=== PATIENT | female | born 1960 | race Caucasian/White ===

== ENCOUNTER 2018-12-04 05:01 | Inpatient (IN) ==
--- NOTE | 2018-10-31 10:49 | Anesthesiology Consultation ---
Date of Service October 31, 2018 Assessment & Plan (1) Encounter for pre-operative examination: - No previous anesthesia records re:intubations. Chart Review Chart Review: Acceptable Risk for Surgery and Patient seen in Pre Admission T esting Consults Requested medical (Dr. Anaya Major ([facility] 11/26)) Patient was seen by PCP on 11/26 for preoperative evaluation. Per note from that visit, "There is no medical contraindication for the proposed surgery and anesthesia." Teaching & Discussion Pre-Anesthesia Teaching/Discussion Notes: Instructed NPO after midnight before surgery, except medications with 15 cc of water. Medication instructions provided according to the PAT guidelines. ASA ASA3 Proposed Anesthesia Anesthesia Type: MAC Spinal Regional Regional Laterality: Right Site: Adductor Canal Risk / Benefits Reviewed With: PT / POA / Parent / Guardian, Accepts Plan and I nformed Consent Obtained History Surgery Operation Date: 12/04/18 07:15 Proposed Procedures p Right Total Knee Arthroplasty - Rodriguez Azar MD Height/Weight Height: 5 ft 1 in Weight: 98.9 kg Allergies Allergy/AdvReac Type Severity Reaction Status Date / Time Penicillins Allergy Intermediate HIVES,SWELLING Verified 12/04/18 05:47 NOSE/THROAT--MAYBE HAD CEPH BUT CANNOT REMEM adhesive Allergy Mild REDNESS Verified 12/04/18 05:47 STERI STRIPS AdvReac Mild Rash Uncoded 10/27/18 08:03 Medications Home Medications Medication Instructions Recorded Confirmed Last Taken anastrozole 1 mg PO QAM 10/27/18 12/04/18 12/04/18 03:30 atorvastatin 20 mg PO WK 10/27/18 12/04/18 12/01/18 08:00 calcium carbonate-vitamin D3 1 tab PO BID 10/27/18 12/04/18 12/03/18 08:00 [Calcium 500 + D] hydrochlorothiazide 25 mg PO QAM 10/27/18 12/04/18 12/03/18 08:00 meloxicam 15 mg PO QAM 10/27/18 12/04/18 11/27/18 08:00 metoprolol succinate 50 mg PO QAM 10/27/18 10/27/18 12/04/18 03:30 oxybutynin chloride 10 mg PO QAM 10/27/18 10/27/18 12/04/18 03:30 ranitidine HCl 150 mg PO BID 10/27/18 10/27/18 12/04/18 03:30 vitamin B complex 1 cap PO QAM 10/27/18 12/04/18 12/03/18 08:00 Active Medications Generic Name Dose Route Start Last Admin Trade Name Higinio PRN Reason Stop Dose Admin Acetaminophen 1,000 mg 12/04/18 06:00 12/04/18 06:04 Tylenol PO 12/04/18 18:00 1,000 mg PREOP DEBORA Administration Celecoxib 200 mg 12/04/18 06:00 12/04/18 06:07 Celebrex PO 12/04/18 18:00 200 mg PREOP DEBORA Administration Dexamethasone 8 mg 12/04/18 06:00 12/04/18 06:04 Decadron PO 12/04/18 18:00 8 mg PREOP DEBORA Administration Famotidine 20 mg 12/04/18 06:00 12/04/18 06:07 Pepcid PO 12/04/18 18:00 20 mg PREOP DEBORA Administration Gabapentin 600 mg 12/04/18 06:00 12/04/18 06:06 Neurontin PO 12/04/18 18:00 600 mg PREOP DEBORA Administration Lactated Ringer's 1,000 mls @ 15 mls/hr 12/04/18 06:00 12/04/18 05:42 Lr IV 12/04/18 18:00 15 mls/hr .Q24H DEBORA Administration Vancomycin HCl 1,500 mg/ 530 mls @ 200 mls/hr 12/04/18 06:00 12/04/18 05:42 Sodium Chloride IV 12/05/18 05:59 200 mls/hr PREOP DEBORA Administration Metoclopramide HCl 10 mg 12/04/18 06:00 12/04/18 06:07 Reglan PO 12/04/18 18:00 10 mg PREOP DEBORA Administration Miscellaneous 1 ea 12/04/18 16:00 12/04/18 06:06 Check Scopolamine Patch Placement N/A 12/05/18 07:59 1 ea QS DEBORA Administration Scopolamine 1.5 mg 12/04/18 06:00 12/04/18 06:06 Transderm-Scop TD 12/04/18 18:00 1.5 mg PREOP DEBORA Administration Past Medical History Medical History GERD (gastroesophageal reflux disease) Hyperlipidemia Hypertension Osteoarthritis Peripheral neuropathy BLE "CHEMO INDUCED" Urinary frequency OVERACTIVE BLADDER History of breast cancer LEFT - h/o chemo and XRT Lymphedema LEFT ARM Morbid obesity Exercise / Class Metabolic Activity III < 4 Walking/Shop/Light housework (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 Able to climb FOS. Denies CP or SOB. ) Past Family History Family History Grandmother (Maternal) Family history of diabetes mellitus Brother Family hx of colon cancer Past Surgical History Surgical History History of bilateral tubal ligation History of breast biopsy History of carpal tunnel release RT/LEFT History of colonoscopy History of mastectomy BILATERAL MASTECTOMY WITH LEFT AXILLARY LYMPH NODE DISSECTION History of total hip arthroplasty RT History of total knee replacement LEFT History of vascular access device APORT PLACED AND REMOVAL Past Anesthesia History No Hx of Anesthesia Complications and No Family Hx of Anesthesia Complications History of PONV No Hx of PONV and No Hx of Motion Sickness Social History Smoking Status: Never smoker Do You Dip or Chew Tobacco: No Hx Alcohol Use: No Hx Substance Use: No substance use type: does not use Review of Systems Patient denies chest pain, shortness of breath, dyspnea on exertion, cough, wheezing, palpitations. +Joint Pain (Knee, Hip) +Acid Reflux (Controlled with ranitidine and occasional gaviscon) Physical Exam Vital Signs Last Vital Signs Temp 98.6 F 12/04/18 05:52 Pulse 85 12/04/18 05:52 Resp 20 12/04/18 05:52 BP 161/86 H 12/04/18 05:52 Pulse Ox 94 12/04/18 05:52 BP: 130/72 P: 74 R: 16 T: 98.5 SPO2: 96% on RA Constitutional + morbidly obese ENMT Mouth: no dentition abnormality Thyromental Distance: < 3.5 Finger Breadths (3) Mallampati Class: III Neck normal visual inspection and trachea midline; neck extension not limited Respiratory normal respiratory effort Auscultation: lungs clear to auscultation bilaterally Cardiovascular Rate/Rhythm: regular rate and regular rhythm Heart Sounds: + murmur (2/6 systolic murmur) Vessels: no carotid bruit Psychiatric Orientation: alert and oriented x 3 Testing Laboratory Results 10/31/18 11:21 10/31/18 11:21 10/31/18 10/31/18 10/31/18 11:21 11:21 11:21 PT 10.2 INR 1.0 APTT 23.3 Hemoglobin A1c Urine Color Dark Yellow Urine Appearance Clear Urine pH 5.5 Ur Specific [place] 1.023 Urine Protein Negative Urine Glucose (UA) Negative Urine Ketones Negative Urine Nitrite Negative Ur Leukocyte Esterase Negative Blood Type A Positive Antibody Screen NEGATIVE 10/31/18 11:21 PT INR APTT Hemoglobin A1c 5.5 Urine Color Urine Appearance Urine pH Ur Specific [place] Urine Protein Urine Glucose (UA) Urine Ketones Urine Nitrite Ur Leukocyte Esterase Blood Type Antibody Screen 10/31/18 11:21 Urine Culture - Final Urine,Clean Catch Gram negative bacilli Electrocardiogram Date: 10/31/18 Findings: + NSR @ (66) When compared with ECG of 04/28/13, T wave amplitude has increased in Anterolateral leads. Chest X-Ray Date: 10/31/18 Findings: + NAD FINDINGS: The lungs are clear. Cardiac silhouette is normal in size. No pleural effusions. No pneumothorax. IMPRESSION: No acute process.
--- NOTE | 2018-10-31 10:53 | PAT Medication Instructions ---
Medication Instructions Date of Service October 31, 2018 Home Medications anastrozole 1 mg PO QAM atorvastatin 20 mg PO WK calcium carbonate-vitamin D3 [Calcium 500 + D] 1 tab PO BID hydrochlorothiazide 25 mg PO QAM meloxicam 15 mg PO QAM metoprolol succinate 50 mg PO QAM oxybutynin chloride 10 mg PO QAM ranitidine HCl 150 mg PO BID vitamin B complex 1 cap PO QAM Continue as directed atorvastatin 20 mg PO WK ASK your surgeon for instructions meloxicam 15 mg PO QAM ASK your prescriber and surgeon anastrozole 1 mg PO QAM DO NOT take the morning of surgery calcium carbonate-vitamin D3 [Calcium 500 + D] 1 tab PO BID hydrochlorothiazide 25 mg PO QAM vitamin B complex 1 cap PO QAM Take morning of surgery With a small sip of water, OTHERWISE NOTHING TO EAT OR DRINK AFTER MIDNIGHT: metoprolol succinate 50 mg PO QAM oxybutynin chloride 10 mg PO QAM ranitidine HCl 150 mg PO BID Take evening before surgery calcium carbonate-vitamin D3 [Calcium 500 + D] 1 tab PO BID ranitidine HCl 150 mg PO BID Other Notes If you have any questions please call us at [phone] or [phone] or [phone] or [phone]
[2018-10-31 12:13] LABS: Basophils # (auto) 0.02 K/uL (0-0.2); Basophils % (auto) 0.3 %; Eosinophils # (auto) 0.05 K/uL (0-0.5); Eosinophils % (auto) 0.8 %; Hematocrit (blood only) 39.2 % (37-47); Hemoglobin 13.3 g/dL (12.0-16.0); Immature Granulocytes # (auto) 0.02 K/uL (0.00-0.02); Immature Granulocytes % (auto) 0.3 %; Lymphocytes % (auto) 28.4 %; Mean Corpuscular Hgb Conc 33.9 g/dL (32-36); Mean Corpuscular Volume 88.9 fL (80-100); Mean Platelet Volume 9.8 fL (7.4-10.4); Monocytes # (auto) 0.33 K/uL (0.11-0.59); Monocytes % (auto) 5.2 %; Neutrophils # (auto) 4.12 K/uL (1.4-6.5); Platelet Count 173 K/uL (130-400); RDW Standard Deviation 45.8 fL (36.4-46.3); Red Blood Count 4.41 M/uL (4.2-5.4); White Blood Count 6.34 K/uL (4.8-10.8)
[2018-10-31 12:16] LABS: Appearance Urine Clear (Clear); Bilirubin Urine Negative (Negative); Blood Urine Negative (Negative); Color Urine Dark Yellow; Glucose Urine UA Negative (Negative); Ketones Urine Negative (Negative); Leukocyte Esterase Urine Negative (Negative); Nitrite Urine Negative (Negative); Protein Urine Negative (Negative); Specific Gravity Urine 1.023 (1.000-1.030); Urobilinogen Urine Negative (Negative); pH Urine 5.5 (4.5-7.5)
--- NOTE | 2018-10-31 12:23 | XRay Report ---
XR chest Pre-admission PA/Lat HISTORY: Preop. COMPARISON: Chest 04/28/2013. FINDINGS: The lungs are clear. Cardiac silhouette is normal in size. No pleural effusions. No pneumot horax. IMPRESSION: No acute process. Electronically signed by: Lukas Campos M.D. 10/31/2018 12:22 PM
[2018-10-31 12:27] LABS: Partial Thromboplastin Ratio 0.9; Partial Thromboplastin Time 23.3 Seconds (21.0-31.0); Prothrombin Time 10.2 Seconds (9.0-12.0)
[2018-10-31 12:45] LABS: Estimated Average Glucose 111 mg/dl; Hemoglobin A1C 5.5 % (4.5-5.6)
[2018-10-31 14:07] LABS: BUN Creatinine Ratio 24.2 (10-20); Calcium 10.1 mg/dl (8.5-10.1); Creatinine Clr Calc Pharmacy 79.6 ml/min; Est GFR (African American) 90.1; Est GFR (Non-African American) 77.7; Potassium 3.9 mmol/L (3.5-5.1)
--- NOTE | 2018-12-03 19:25 | History and Physical Report ---
DATE OF ADMISSION: 12/04/2018 CHIEF COMPLAINT: Chronic right knee pain. HISTORY OF PRESENT ILLNESS: This is a 58-year-old female patient of Dr. Azar'edil complaining of chronic right knee pain, longstanding, now progressively getting worse. The patient has been diagnosed with end-stage osteoarthritis per clinical and radiographic exams. She has failed conservative treatment including anti-inflammatories and the use of a cane. The patient has increased pain with weightbearing activities and her pain does interfere with her activities of daily living. PAST MEDICAL HISTORY: Hypertension, hypercholesterolemia, neuropathy in the feet, osteoarthritis, kidney stones, acid reflux, obesity, left arm lymphedema, history of breast cancer. SOCIAL HISTORY: Nonsmoker, nondrinker. PAST SURGICAL HISTORY: Right breast mastectomy, left breast mastectomy, left total knee replacement, right total hip replacement and carpal tunnel surgery. REVIEW OF SYSTEMS: Chronic right knee pain and instability. Otherwise, denies any shortness of breath, chest pain, nausea, vomiting or any other joint complaints. FAMILY HISTORY: Noncontributory. MEDICATIONS: 1. Tylenol 500 mg as needed. 2. Mobic 15 mg daily. 3. Metamucil oral powder daily. 4. Anastrozole 1 mg daily. 5. Atorvastatin 20 mg 1 tablet daily. 6. Metoprolol 50 mg 1 tablet daily. 7. Oxybutynin 10 mg daily. 8. Vitamin B-1, 50mg daily. 9. Calcium 500 plus D twice daily. 10. Hydrochlorothiazide 25 mg daily. 11. Zantac 150 mg 1 tablet twice daily. 12. Oxycodone 5 mg as needed. ALLERGIES: 1. PENICILLIN WHICH CAUSES RASH AND SHORTNESS OF BREATH. 2. ADHESIVE. PHYSICAL EXAMINATION: GENERAL: Well-developed, well-nourished 58-year-old female in no acute distress. She is alert and oriented x3 and pleasant. HEENT: Normocephalic, atraumatic. Extraocular motions are intact. Pupils are equal and reactive to light. HEART: Regular rate and rhythm, no murmurs are appreciated. LUNGS: Clear. ABDOMEN: Soft, nontender, bowel sounds present. EXTREMITIES: Right knee limited range of motion of 0-90 degrees with a neutral alignment. She has crepitation with passive range of motion, positive swelling. She has 5/5 strength with pain. NEUROLOGIC: Neurovascularly, she is intact in her right lower extremity. DIAGNOSES: Right knee end-stage osteoarthritis, hypertension, hypercholesterolemia, peripheral neuropathy in her feet, osteoarthritis, acid reflux, obesity, left arm lymphedema, kidney stones, and history of breast cancer. PLAN: The patient was advised of her diagnosis. Indications, risks, benefits, postop course have all been reviewed. The patient wished to proceed with a right total knee arthroplasty. Necessary consent forms, preoperative testing and clearances will be obtained. JOSETTE
[2018-12-04] MEDS ORDERED: LR 500ML BOLUS, THEN 15ML/HR IV SCH (06:00)
[2018-12-04] MEDS ORDERED: ROPIVACAINE 0.5% HCL/PF 150 MG, BUPIVACAINE 0.5% MPF 30 ML, EPINEPHrine 30MG/30ML (OR U... INSTIL SCH (06:00)
[2018-12-04] MEDS ORDERED: GABAPENTIN 600 MG DOSE PO SCH (06:00)
[2018-12-04] MEDS ORDERED: VANCOMYCIN HCL 1,500 MG in SODIUM CHLORIDE 0.9% 500 ML IV SCH ×2 (06:00→18:00)
[2018-12-04] MEDS ORDERED: CeleBREX 200 MG CAP PO SCH (06:00)
[2018-12-04] MEDS ORDERED: dexAMETHasone 4 MG TAB PO SCH (06:00)
[2018-12-04] MEDS ORDERED: FAMOTIDINE 20 MG TAB PO SCH (06:00)
[2018-12-04] MEDS ORDERED: SCOPOLAMINE 1.5 MG TDSY TD SCH (06:00)
[2018-12-04] MEDS ORDERED: METOCLOPRAMIDE HCL 10 MG TABLET PO SCH (06:00)
[2018-12-04] MEDS ORDERED: ACETAMINOPHEN 500 MG TAB PO SCH (06:00)
[2018-12-04] MEDS ORDERED: TRANEXAMIC ACID 1,000 MG **IV Pre-op IV SCH (06:00)
[2018-12-04] MEDS ORDERED: ROPIVACAINE 0.5% 5 MG/ML 30 ML VIAL ONE (06:08)
[2018-12-04] MEDS ORDERED: BUPIVACAINE 0.5 % 5 MG/1 ML PF 10ML VIAL ONE (06:08)
[2018-12-04] MEDS ORDERED: TRANEXAMIC ACID 1,000 MG **IV Intra-op IV SCH (06:30)
[2018-12-04] MEDS ORDERED: fentaNYL citrate 100 MCG/2 ML VIAL ONE (06:44)
[2018-12-04] MEDS ORDERED: MIDAZOLAM HCL 1 MG/ML 2ML VIAL ONE ×2 (06:44)
[2018-12-04] MEDS ORDERED: BACITRACIN INJ 50,000 UNIT VIAL ONE (07:01)
[2018-12-04] MEDS ORDERED: ORTHO JOINT ANESTHETIC ONE (07:01)
--- NOTE | 2018-12-04 07:05 | History & Physical Bridge Note ---
Date of Service December 04, 2018 History & Physical Bridge Note I have examined the patient, reviewed the History & Physical and in the interval since the performance of the History & Physical I have noted the following changes of clinical significance: no changes noted
[2018-12-04] MEDS ORDERED: ATROPINE SULFATE 0.1 MG/ML 10ML SYR IV PRN (08:10)
[2018-12-04] MEDS ORDERED: ONDANSETRON INJ 2 MG/ML 2 ML VIAL IV PRN ×2 (08:10→10:05)
[2018-12-04] MEDS ORDERED: ePHEDrine sulfate 50 MG/ML AMP IV PRN (08:10)
[2018-12-04] MEDS ORDERED: fentaNYL citrate 100 MCG/2 ML VIAL IV PRN (08:10)
[2018-12-04] MEDS ORDERED: PROPOFOL IV EMULSION 10 MG/ML 20 ML VIAL IV ONE ×2 (08:41→08:43)
[2018-12-04] MEDS ORDERED: ONDANSETRON INJ 2 MG/ML 2 ML VIAL ONE (08:42)
[2018-12-04] MEDS ORDERED: LIDOCAINE HCL 2% 2 ML VIAL/AMP(20MG/ML) INFIL ONE (08:42)
[2018-12-04] MEDS ORDERED: DEXAMETHASONE SOD INJ 4 MG/ML VIAL ONE (08:42)
--- NOTE | 2018-12-04 09:13 | Post Operative Brief Note ---
Immediate Post Op Note v1 Date of Surgery December 04, 2018 Pre & Post Diagnosis Operation Date: 12/04/18 07:15 Pre-Op Diagnosis: RIGHT KNEE OSTEOARTHRITIS Post-Op Diagnosis: RIGHT KNEE OSTEOARTHRITIS Procedure Operation Date: 12/04/18 07:15 Actual Procedures p Right Total Knee Arthroplasty(Right) - Rodriguez Azar MD Surgeon Rodriguez Azar MD Painter Bottom Sidney OCONNOR Estimated Blood Loss 10 Findings Consistent with Post-Op Diagnosis Specimens Bone cuts Drains Hemovac Drain Anesthesia Type MAC Spinal Regional Complications none Disposition Accompanied Patient To Recovery: No Disposition: Recovery Room Overlapping Procedure I was immediately available: during the entire case.
--- NOTE | 2018-12-04 09:38 | Operative Report ---
Post Operative Report Pre & Post Diagnosis Operation Date: 12/04/18 07:15 Pre-Op Diagnosis: RIGHT KNEE OSTEOARTHRITIS Post-Op Diagnosis: RIGHT KNEE OSTEOARTHRITIS Procedure Operation Date: 12/04/18 07:15 Actual Procedures p Right Total Knee Arthroplasty(Right) - Rodriguez Azar MD Surgeon Rodriguez Azar MD Day Trader Sidney OCONNOR Estimated Blood Loss 10 Findings Consistent with Post-Op Diagnosis Specimens Bone cuts Drains 2 Hemovac Anesthesia Type MAC Spinal Regional Complications none Disposition Accompanied Patient To Recovery: No Disposition: Recovery Room Indications 58-year-old female with chronic right knee pain. History of previous right hip replacement left knee replacement. She has severe end-stage osteoarthritis of her right knee [id number] lateral compartment advanced patellofemoral OA tricompartmental DJD flexion contracture and limited knee flexion. She also has morbid obesity BMI 40.3 but most of its abdominal not involving the knee. Description of Procedure The patient was taken to the operating room and anesthetized under spinal MAC regional. Patient was placed supine on the the operating table. A pneumatic tourniquet was placed about the right obese upper thigh. The knee exam demonstrated very stiff valgus knee old medial scar from arthrotomy from surgery years ago. There is a 15 degree flexion contracture flexion to 95 degrees only. The involved leg was elevated exsanguinated with Esmarch bandage and the pneumatic tourniquet was raised to 350 millimeters mercury. A longitudinal incision was made across the anterior knee. Skin flaps were elevated. An incision was made into the medial retinaculum and extended up into the mid third of the quadriceps tendon and extended down to the tibial tubercle. Intra- articular findings demonstrated severe tricompartmental DJD [id number] lateral compartment, patient had partial medial lateral meniscectomies. Patient had large osteophytes tricompartmental including posterior femoral condylar osteophytes. The knee was exposed by excising cruciate ligaments and menisci. The infrapatellar fat pad was resected. The fat pad over the anterior femur at the upper aspect of the articular surface was resected for placement of the component in that area. A subperiosteal peel lateral release was performed around the patella. To balance the knee lateral capsular release posterior lateral capsule release IT band release performed. The [employer] journey total knee arthroplasty system was utilized for the procedure. The custom femoral cutting guide was pinned in position. The distal femoral cut was made. The size 4, 5 in 1 cutting block was placed. The anterior posterior and chamfer cuts were made. The knee was extended and a free hand cut technique was performed to the patella. The patella with was measured and the width was reproduced using a 32 patella component. 3 drill holes are made for the patella component pegs. The tibia was then subluxed. The custom tibial cutting block was pinned in position and the proximal tibial cut was made with the oscillating saw. The size 3 tibial trial was externally rotated in line with the tibial tubercle and pinned in position. The punch for the stem was used. The femoral trial was inserted and centered the notch cutting devices were used and the collet was placed. Tibial trials were used for the insert. The size 12 trial gave balanced ligaments through full range of motion. Patella tracking was assessed with range of motion. The patella tracked ce ntrally. The trials were removed. The Orthomix anesthetic cocktail was injected per protocol. The cut bone surfaces and soft tissue were copiously irrigated with antibiotic solution with bacitracin. The final components were cemented with Simplex cement. The final components were [employer] journey 2.0 right size 4 posterior stabilized femoral component, 3 tibial baseplate, 12 posterior stabilized poly-tibial insert, 32 symmetrical patella. While the cement cured the Betadine soak was used per protocol. When the cement cured the knee was copiously irrigated with pulsatile lavage antibiotic solution with bacitracin. 2 drains were brought out laterally connected to Hemovac. The quadriceps tendon and medial retinaculum were closed with interrupted [id number] #1 Vicryl sutures. The knee was taken through full range of motion and repair was secure. Range of motion was 0-120. The subcutaneous tissues were closed with 2-0 Vicryl sutures. The skin was closed with antonio. A sterile dressing was applied. The tourniquet was let down and the patient had good capillary refill to the extremity. The patient tolerated the procedure well. My physician nurse assistant Sidney OCONNOR assisted in the procedure including prepping draping leg positioning soft tissue retraction instrument management and assisted in the closure ,dressings application and will participate in postoperative care the patient. I attest to the content of the Intraoperative Record and any orders documented therein. Any exceptions are noted below.
--- NOTE | 2018-12-04 09:51 | XRay Report ---
XR knee RT 2V routine HISTORY: 58 years-old Female Surgical Post Op right knee total joint arthroplasty COMPARISON: None available TECHNIQUE: 2 views of the right knee FINDINGS: Right knee total joint arthroplasty and patella resurfacing demonstrates satisfactory alignment. Ante rior midline skin antonio are noted along with expected postsurgical soft tissue swelling and deep ti ssue air with surgical drainage catheter. IMPRESSION: Right knee total joint arthroplasty and patella resurfacing with expected postoperative f indings. The above report was generated using voice recognition software. It may contain grammatical, syntax o r spelling errors. Electronically signed by: Lamin Malik M.D. 12/04/2018 9:50 AM
--- NOTE | 2018-12-04 09:54 | Anesthesiology Progress Note ---
Date of Service December 04, 2018 Anesthesia Post Procedure Vital Signs Vital Signs: Temp Pulse Pulse Resp BP Pulse Ox 12/04/18 09:50 99.0 F 7 L 18 133/67 81 L 12/04/18 09:40 85 18 141/67 H 94 12/04/18 09:30 90 18 129/63 94 12/04/18 09:23 99.5 F 94 H 18 122/59 L 94 12/04/18 05:52 98.6 F 85 20 161/86 H 94 Pain Intensity Right Knee: Pain Intensity: 2 Transfer of Care Handoff Completed per policy Notes Mental Status: alert / awake / arousable and participated in evaluation Patient Amnestic to Procedure: Yes Nausea / Vomiting: adequately controlled Pain: adequately controlled Airway Patency, RR, SpO2: stable & adequate BP & HR: stable & adequate Hydration State: stable & adequate Neuraxial Anesthesia: was administered and sensory block is resolving Anesthetic Complications: no major complications apparent and Pt Satisfied with anesthetic care
[2018-12-04] MEDS ORDERED: NALOXONE HCL 0.4 MG/1 ML VIAL/CARP IV PRN (10:05)
[2018-12-04] MEDS ORDERED: SODIUM CHLORIDE 0.9% 1000ML 1,000 ML IV SCH (10:05)
[2018-12-04] MEDS ORDERED: VANCOMYCIN HCL 1,500 MG in SODIUM CHLORIDE 0.9% 250 ML IV SCH (10:05)
[2018-12-04] MEDS ORDERED: MAGNESIUM HYDROXIDE SUSP 30 ML UDC PO PRN (10:05)
[2018-12-04] MEDS ORDERED: HYDROmorphone INJ 0.5 MG/0.5 ML SYR IV PRN (10:05)
[2018-12-04] MEDS ORDERED: VANCOMYCIN CONSULT ACTIVE PRN (10:05)
[2018-12-04] MEDS ORDERED: BISACODYL 10 MG SUPP PR PRN (10:05)
--- NOTE | 2018-12-04 10:25 | Hospitalist Consultation ---
Date of Consultation December 04, 2018 Assessment & Plan (1) Status post total knee replacement, right: This is a 50-year-old female with a PMH of hypertension, history of breast cancer on Arimidex, HLD, GERD and other medical problems listed below who is POD#0 s/p right TKA by Dr. Azar. -POD#0 s/p R TKA by Dr. Azar -Pt is doing well post-operatively -Per ortho for pain control, wound care, anticoagulation and activities -Monitor H&H (pre-op hgb of 13.3), continue incentive spirometry, PT/OT when appropriate (2) Hypertension: BP slightly elevated in setting of pain -Optimize pain control -Continue home dose Toprol and hydrochlorothiazide (3) Hyperlipidemia: Takes statin dose weekly (4) History of breast cancer: H/o left mastectomy and reconstruction -Continue daily Arimidex (5) GERD (gastroesophageal reflux disease): Continue ranitidine (6) Overactive bladder: Continue home dose oxybutynin PCP: Moriah Lopez) Dispo: Per primary service Patient seen in collaboration with Dr. Girard. Please see addendum. Supervising Physician Co-Signing Physician Notes I have seen and examined the patient with physician respiratory assistant and agree with the assessment and plan and would like to comment that Patient is under General Surgery with hospitalist medicine as consulting service. that patient is s/p Right Total Knee Arthroplasty(Right) on 12/04/18 Currently pain is controlled. patient has wound vac to right knee. patient breathing on room air no bowel movements yet at this time since the surgery. Management of Hypertension and statin and breast cancer history and bladder issues as documented by physician respiratory assistant General: no acute distress, eating lunch Neuro: no focal neurological deficits Lungs: CTABL, no wheezing Heart: regular rate and rhythm Abdomen: soft, nontender, bowel sounds present Extremities: wound vac to right knee draining blood History of Present Illness Reason for Consultation: Postop medical management Attending Physician: Rodriguez Azar MD History of Present Illness This is a 50-year-old female with a PMH of hypertension, history of breast cancer on Arimidex, HLD, GERD and other medical problems listed below who is POD#0 s/p right TKA by Dr. Azar. Patient is feeling well postoperatively. Denies any pain at surgical site or in distal extremities. Still feeling the effects of anesthesia. Tolerating breakfast well without any nausea or vomiting. Has history of hypertension for which she takes metoprolol and hydrochlorothiazide. Has history of right breast cancer s/p mastectomy and reconstruction on Arimidex. Follows with Dr. Major in [place]. Denies fever, chills, headache, lightheadedness,chest pain, palpitations, shortness of breath, abdominal pain,dysuria, constipation or diarrhea. Last BM was this morning. Allergies Allergy/AdvReac Type Severity Reaction Status Date / Time Penicillins Allergy Intermediate HIVES,SWELLING Verified 12/04/18 05:47 NOSE/THROAT--MAYBE HAD CEPH BUT CANNOT REMEM adhesive Allergy Mild REDNESS Verified 12/04/18 05:47 STERI STRIPS AdvReac Mild Rash Uncoded 10/27/18 08:03 Home Medications Home Medications Medication Instructions Recorded Confirmed Type anastrozole 1 mg PO QAM 10/27/18 12/04/18 History atorvastatin 20 mg PO WK 10/27/18 12/04/18 History calcium carbonate-vitamin D3 1 tab PO BID 10/27/18 12/04/18 History [Calcium 500 + D] hydrochlorothiazide 25 mg PO QAM 10/27/18 12/04/18 History meloxicam 15 mg PO QAM 10/27/18 12/04/18 History metoprolol succinate 50 mg PO QAM 10/27/18 10/27/18 History oxybutynin chloride 10 mg PO QAM 10/27/18 10/27/18 History ranitidine HCl 150 mg PO BID 10/27/18 10/27/18 History vitamin B complex 1 cap PO QAM 10/27/18 12/04/18 History Patient History Medical History History of breast cancer (Chronic) LEFT - h/o chemo and XRT Hyperlipidemia (Chronic) Hypertension (Chronic) GERD (gastroesophageal reflux disease) (Chronic) Osteoarthritis (Chronic) Peripheral neuropathy (Chronic) BLE "CHEMO INDUCED" Urinary frequency (Chronic) OVERACTIVE BLADDER Lymphedema (Chronic) LEFT ARM Morbid obesity (Chronic) Surgical History History of bilateral tubal ligation (Chronic) History of breast biopsy (Chronic) History of carpal tunnel release (Chronic) RT/LEFT History of mastectomy (Chronic) BILATERAL MASTECTOMY WITH LEFT AXILLARY LYMPH NODE DISSECTION History of total hip arthroplasty (Chronic) RT History of total knee replacement (Chronic) LEFT History of vascular access device (Chronic) APORT PLACED AND REMOVAL Family History Grandmother (Maternal) Family history of diabetes mellitus Brother Family hx of colon cancer Social History Preferred Language: [place] Communication Ability: Effective Rivet Sticker Required: No Beliefs That Will Affect Care: None marital status: Current Living Situation: Spouse Other Information That Helps Us Care for You: No Feels Safe at Home: Yes Safety Concerns: Feels Safe At This Time Smoking Status: Never smoker Do You Dip or Chew Tobacco: No Second Hand Exposure: No Tobacco Cessation Education Requested by Patient: No Hx Alcohol Use: No Hx Substance Use: No Review of Systems Review of Systems: At least ten systems reviewed and negative except as noted in the HPI. Physical Exam Physical Exam: General Appearance: WD/WN, no apparent distress, resting comfortably eating breakfast Head: normocephalic, atraumatic Eyes: normal inspection, PERRL, EOMI ENT: hearing grossly normal, pharynx normal (moist mucous membranes) Neck: supple, no JVD, no adenopathy Respiratory/Chest: lungs clear to auscultation. No wheezes, rales or rhonci. No respiratory distress or accessory muscle use Cardiovascular: regular rate, rhythm, no murmur, normal peripheral pulses Abdomen/GI: normal bowel sounds, soft, non-tender to palpation Extremities/Musculoskelatal: R knee surgical dressing intact, clean/dry/intact. Hemovac visualized. No calf tenderness, normal capillary refill, no pedal edema. + SCDs Neurologic/Psych: alert, normal mood/affect, oriented x 3 Skin: normal color, warm/dry Results & Data Vital Signs (Past 12 Hours) Vital Signs Temp Pulse Pulse Resp BP Pulse Ox 12/04/18 09:50 37.2 C 7 L 18 133/67 81 L 12/04/18 09:40 85 18 141/67 H 94 12/04/18 09:30 90 18 129/63 94 12/04/18 09:23 37.5 C 94 H 18 122/59 L 94 12/04/18 05:52 37 C 85 20 161/86 H 94 Laboratory Results Pertinent pre-op labwork (6/7/19): Hgb: 13.3 Cr: 0.83
[2018-12-04] MEDS: OXYCODONE HCL IR 5 MG TAB (IMMEDIATE RELEASE) PO PRN ×2 (12:38→22:26)
[2018-12-04] MEDS: ACETAMINOPHEN 500 MG TAB PO SCH ×2 (14:33→21:02)
[2018-12-04] MEDS ORDERED: CHECK SCOPOLAMINE PATCH PLACEMENT SCH (16:00)
[2018-12-04] MEDS: CALCIUM 600MG + VIT D 400 IU TAB PO SCH (20:32)
[2018-12-04] MEDS: SENNA 8.6 MG TAB PO SCH (20:32)
[2018-12-04] MEDS: DOCUSATE SODIUM 100 MG CAP PO SCH (20:32)
[2018-12-05] MEDS: ACETAMINOPHEN 500 MG TAB PO SCH ×3 (05:40→21:05)
[2018-12-05 07:07] LABS: Hematocrit (blood only) 30.8 % (37-47); Hemoglobin 10.6 g/dL (12.0-16.0); Mean Corpuscular Hgb Conc 34.4 g/dL (32-36); Mean Corpuscular Volume 89.3 fL (80-100); Mean Platelet Volume 9.6 fL (7.4-10.4); Platelet Count 151 K/uL (130-400); RDW Coefficient of Variation 14.1 % (11.5-14.5); RDW Standard Deviation 46.3 fL (36.4-46.3); Red Blood Count 3.45 M/uL (4.2-5.4); White Blood Count 10.86 K/uL (4.8-10.8)
[2018-12-05 07:44] LABS: Alanine Aminotransferase 25 U/L (12-78); Albumin Level 3.1 gm/dl (3.4-5.0); Aspartate Aminotransferase 10 U/L (15-37); BUN Creatinine Ratio 17.3 (10-20); Bilirubin Direct < 0.1 mg/dl (0-0.2); Blood Urea Nitrogen 14 mg/dl (7-18); Calcium 8.9 mg/dl (8.5-10.1); Carbon Dioxide 25 mmol/L (21-32); Chloride 111 mmol/L (98-107); Creatinine Clr Calc Pharmacy 80.6 ml/min; Est GFR (African American) 92.8; Est GFR (Non-African American) 80.1; Glucose 111 mg/dl (70-99); Potassium 3.6 mmol/L (3.5-5.1); Sodium 143 mmol/L (136-145)
[2018-12-05 07:47] LABS: Alkaline Phosphatase 51 U/L (45-117); Bilirubin,Total 0.5 mg/dl (0.2-1); Total Protein 5.6 gm/dl (6.4-8.2)
--- NOTE | 2018-12-05 08:20 | Orthopedic Progress Note ---
Date of Service December 05, 2018 Assessment & Plan (1) Right knee DJD: POD #1, Right TKA PT/ OT DVT proph- Xarelto D/C planning- Home w OPPT As per medicine Subjective POD #1, Doing well, denies sob, cp, n/v, pain controlled well. Physical Exam Physical Exam: Right knee dressings c/d/i, no drainage, toes/ ankle mobile, no calf tenderness, A&Ox3. Results & Data Vital Signs (Past 12 Hours) Vital Signs Temp Pulse Resp BP Pulse Ox 12/05/18 07:27 36.6 C 76 16 130/77 96 12/05/18 03:40 36.7 C 79 16 123/79 97 12/04/18 23:55 69 16 130/72 97 12/04/18 20:35 36.4 C L 78 18 128/74 96
[2018-12-05] MEDS: hydroCHLOROthiazide 25 MG TAB PO SCH (08:32)
[2018-12-05] MEDS: CALCIUM 600MG + VIT D 400 IU TAB PO SCH ×2 (08:33→20:18)
[2018-12-05] MEDS: METOPROLOL SUCC 50MG EXT REL TAB PO SCH (08:33)
[2018-12-05] MEDS: DOCUSATE SODIUM 100 MG CAP PO SCH ×2 (08:33→20:18)
[2018-12-05] MEDS: VITAMIN B COMPLEX TAB PO SCH (08:33)
[2018-12-05] MEDS: OXYBUTYNIN CHLORIDE XL 5 MG TABCR PO SCH (08:34)
[2018-12-05] MEDS: MULTIVITAMIN TAB PO SCH (08:34)
[2018-12-05] MEDS: ANASTROZOLE 1 MG TAB PO SCH (08:35)
[2018-12-05] MEDS: RIVAROXABAN 10 MG TABLET PO SCH (08:37)
[2018-12-05] MEDS: OXYCODONE HCL IR 5 MG TAB (IMMEDIATE RELEASE) PO PRN ×4 (08:37→22:09)
--- NOTE | 2018-12-05 09:12 | Hospitalist Progress Note ---
Date of Service December 05, 2018 Assessment & Plan (1) Status post total knee replacement, right: This is a 50-year-old female with a PMH of hypertension, history of breast cancer on Arimidex, HLD, GERD and other medical problems listed below who is POD#1 s/p right TKA by Dr. Azar. -POD#1 s/p R TKA by Dr. Azar -Pt is doing well post-operatively -Per ortho for pain control, wound care, anticoagulation and activities -Continue incentive spirometry, PT/OT when appropriate (2) Acute blood loss as cause of postoperative anemia: Hgb of 10.6 today (pre-op hgb 13.3) -Asymptomatic anemia. No visual changes, lightheadedness, chest pain or p alpitations -No indication for transfusion. Continue to monitor with daily CBC (3) Hypertension: Normotensive -Continue home dose Toprol and hydrochlorothiazide (4) Hyperlipidemia: Takes statin dose weekly (5) History of breast cancer: H/o left mastectomy and reconstruction -Continue daily Arimidex (6) GERD (gastroesophageal reflux disease): Continue ranitidine (7) Overactive bladder: Continue home dose oxybutynin PCP: Moriah Lopez) Dispo: Per primary service Patient seen in collaboration with Dr. Girard. Please see addendum. Supervising Physician Co-Signing Physician Notes I have seen and examined the patient with physician periodicals library assistant and agree with the recommendations as above and would like to comment that Patient is under General Surgery with hospitalist medicine as consulting service. that patient is s/p Right Total Knee Arthroplasty(Right) on 12/04/18 Currently pain is controlled. patient has wound vac to right knee. Patient has acute blood loss anemia secondary to surgery and wound vac as noted by decline in the Hgb from 13 to 10 but no symptoms of dizziness/lightheadedness. No need for blood transfusion at this time Continue the management of the wound vac as per general surgery service Patient is performing with physical and occupational therapy patient breathing on room air no bowel movements yet at this time since the surgery. Patient on bowel regimen for constipation Management of Hypertension and statin and breast cancer history and bladder issues as documented by physician periodicals library assistant General: no acute distress, eating lunch Neuro: no focal neurological deficits Lungs: CTABL, no wheezing Heart: regular rate and rhythm Abdomen: soft, nontender, bowel sounds present Extremities: wound vac to right knee draining blood Subjective Patient seen and examined while eating breakfast in bedside chair. Feels well today with minimal surgical site pain. Is tolerating meals without issue. Planning to participate in therapy today. Denies visual changes, lightheadedness, chest pain or palpitations. Urinating without issue. Passing flatus, no BM yet. Primary service planning possible discharge home tomorrow. Denies fever, chills, headache, abdominal pain, dysuria, constipation or diarrhea. Review of Systems Review of Systems: At least ten systems reviewed and negative except as noted in the HPI. Physical Exam Physical Exam: General Appearance: WD/WN, no apparent distress, sitting upright eating breakfast Head: normocephalic, atraumatic Eyes: normal inspection, PERRL, EOMI ENT: hearing grossly normal, pharynx normal (moist mucous membranes) Neck: supple, no JVD, no adenopathy Respiratory/Chest: lungs clear to auscultation. No wheezes, rales or rhonci. No respiratory distress or accessory muscle use Cardiovascular: regular rate, rhythm, no murmur, normal peripheral pulses Abdomen/GI: normal bowel sounds, soft, non-tender to palpation Extremities/Musculoskelatal: R knee with surgical dressing clean, dry, intact. Drain visualized. No calf tenderness, normal capillary refill Neurologic/Psych: alert, normal mood/affect, oriented x 3 Skin: normal color, warm/dry Results & Data Vital Signs (Past 12 Hours) Vital Signs Temp Pulse Resp BP Pulse Ox 12/05/18 07:27 36.6 C 76 16 130/77 96 12/05/18 03:40 36.7 C 79 16 123/79 97 12/04/18 23:55 69 16 130/72 97 Laboratory Results Short CBC 12/05/18 Range/Units 06:43 WBC 10.86 H (4.8-10.8) K/uL Hgb 10.6 L (12.0-16.0) g/dL Hct 30.8 L (37-47) % Plt Count 151 (130-400) K/uL BMP 12/05/18 06:43 Sodium 143 Potassium 3.6 Chloride 111 H Carbon Dioxide 25 BUN 14 Creatinine 0.81 Glucose 111 H Calcium 8.9 Liver Function 12/05/18 Range/Units 06:43 Total Bilirubin 0.5 (0.2-1) mg/dl Direct Bilirubin < 0.1 (0-0.2) mg/dl AST 10 L (15-37) U/L ALT 25 (12-78) U/L Alkaline Phosphatase 51 (45-117) U/L Albumin 3.1 L (3.4-5.0) gm/dl
--- NOTE | 2018-12-05 14:25 | Anesthesiology Progress Note ---
Date of Service December 05, 2018 Anesthesia Post Procedure Vital Signs Vital Signs: Temp Pulse Resp BP Pulse Ox 12/05/18 12:18 36.4 C L 62 16 110/71 94 12/05/18 07:27 36.6 C 76 16 130/77 96 12/05/18 03:40 36.7 C 79 16 123/79 97 12/04/18 23:55 69 16 130/72 97 12/04/18 20:35 36.4 C L 78 18 128/74 96 12/04/18 15:02 36.7 C 90 17 131/73 96 Pain Intensity Right Knee: Pain Intensity: 3 Notes Mental Status: alert / awake / arousable Nausea / Vomiting: adequately controlled Pain: adequately controlled Airway Patency, RR, SpO2: stable & adequate BP & HR: stable & adequate Hydration State: stable & adequate Neuraxial Anesthesia: was administered and sensory block resolved Anesthetic Complications: no major complications apparent and Pt Satisfied with anesthetic care
[2018-12-05] MEDS: SENNA 8.6 MG TAB PO SCH (20:18)
[2018-12-06] MEDS: OXYCODONE HCL IR 5 MG TAB (IMMEDIATE RELEASE) PO PRN ×2 (02:34→07:40)
[2018-12-06] MEDS: ACETAMINOPHEN 500 MG TAB PO SCH (06:06)
[2018-12-06 06:14] VITALS: BP 144/83; PULSE 90; TEMP 97.7; O2SAT 96
[2018-12-06 06:41] LABS: Hematocrit (blood only) 29.8 % (37-47); Hemoglobin 10.1 g/dL (12.0-16.0); Mean Corpuscular Hgb Conc 33.9 g/dL (32-36); Mean Corpuscular Volume 89.2 fL (80-100); Mean Platelet Volume 9.6 fL (7.4-10.4); Platelet Count 125 K/uL (130-400); RDW Coefficient of Variation 14.4 % (11.5-14.5); RDW Standard Deviation 47.1 fL (36.4-46.3); Red Blood Count 3.34 M/uL (4.2-5.4); White Blood Count 6.75 K/uL (4.8-10.8)
[2018-12-06 07:08] LABS: BUN Creatinine Ratio 19.6 (10-20); Calcium 8.9 mg/dl (8.5-10.1); Creatinine Clr Calc Pharmacy 74.2 ml/min; Est GFR (African American) 83.9; Est GFR (Non-African American) 72.4; Potassium 3.7 mmol/L (3.5-5.1)
[2018-12-06] MEDS: DOCUSATE SODIUM 100 MG CAP PO SCH (07:35)
[2018-12-06] MEDS: METOPROLOL SUCC 50MG EXT REL TAB PO SCH (07:35)
[2018-12-06] MEDS: MULTIVITAMIN TAB PO SCH (07:35)
[2018-12-06] MEDS: OXYBUTYNIN CHLORIDE XL 5 MG TABCR PO SCH (07:36)
[2018-12-06] MEDS: RIVAROXABAN 10 MG TABLET PO SCH (07:36)
[2018-12-06] MEDS: hydroCHLOROthiazide 25 MG TAB PO SCH (07:36)
[2018-12-06] MEDS: VITAMIN B COMPLEX TAB PO SCH (07:36)
[2018-12-06] MEDS: CALCIUM 600MG + VIT D 400 IU TAB PO SCH (07:37)
[2018-12-06] MEDS: ANASTROZOLE 1 MG TAB PO SCH (07:37)
--- NOTE | 2018-12-06 08:03 | Orthopedic Progress Note ---
Date of Service December 06, 2018 Assessment & Plan (1) Status post total knee replacement, right: 58 yo female stable POD #2 s/p right TKA 1. Med management 2. DVT prophylaxis- Xarelto, SCDs 3. PT/OT 4. D/C planning- home w/ OPPT Subjective Pt resting in chair, pain controlled, denies complaints Physical Exam Physical Exam: Silverlon dressing in place, knee high TEDS, toes mobile, NVI, calf soft Results & Data Vital Signs (Past 12 Hours) Vital Signs Temp Pulse Resp BP Pulse Ox 12/06/18 06:13 36.5 C 90 16 144/83 H 96 12/05/18 23:35 36.8 C 80 16 99/56 L 95 Laboratory Results 12/06/18 12/06/18 Range/Units 06:13 06:13 WBC 6.75 (4.8-10.8) K/uL RBC 3.34 L (4.2-5.4) M/uL Hgb 10.1 L (12.0-16.0) g/dL Hct 29.8 L (37-47) % MCV 89.2 (80-100) fL MCH 30.2 (25-34) pg MCHC 33.9 (32-36) g/dL RDW Std Deviation 47.1 H (36.4-46.3) fL RDW Coeff of Estuardo 14.4 (11.5-14.5) % Plt Count 125 L (130-400) K/uL MPV 9.6 (7.4-10.4) fL Sodium 144 (136-145) mmol/L Potassium 3.7 (3.5-5.1) mmol/L Chloride 110 H (98-107) mmol/L Carbon Dioxide 29 (21-32) mmol/L Anion Gap 6.0 (3-11) BUN 17 (7-18) mg/dl Creatinine 0.88 (0.6-1.2) mg/dl Est Cr Clr Drug Dosing 74.2 ml/min Est GFR ( Amer) 83.9 Est GFR (Non-Af Amer) 72.4 BUN/Creatinine Ratio 19.6 (10-20) Glucose 83 (70-99) mg/dl Calcium 8.9 (8.5-10.1) mg/dl
--- NOTE | 2018-12-06 08:15 | Hospitalist Progress Note ---
Date of Service December 06, 2018 Assessment & Plan (1) Status post total knee replacement, right: This is a 50-year-old female with a PMH of hypertension, history of breast cancer on Arimidex, HLD, GERD and other medical problems listed below who is POD#1 s/p right TKA by Dr. Azar. Patient is under Orthopedic service with hospitalist medicine as consulting service. that patient is s/p Right Total Knee Arthroplasty(Right) on 12/04/18 -Currently pain is controlled -wound vac was removed on 12/05/18 -discharge when ready by orthopedics -have advised patient to follow with primary care doctor for follow up CBC -Medicine hospitalist service consult to sign off (2) Acute blood loss as cause of postoperative anemia: -Patient has acute blood loss anemia secondary to surgery and wound vac as noted by decline in the Hgb from preop 13 to psotop Hgb of 10 but no symptoms of dizziness/lightheadedness -No need for blood transfusion at this time -have advised patient to follow with primary care doctor for follow up CBC (3) Hypertension: Normotensive -Continue home dose Toprol and hydrochlorothiazide (4) Hyperlipidemia: Takes statin dose weekly (5) History of breast cancer: H/o left mastectomy and reconstruction -Continue daily Arimidex (6) GERD (gastroesophageal reflux disease): Continue ranitidine (7) Overactive bladder: Continue home dose oxybutynin Subjective Patient seen aat bedside. She reports that the orthopedic team plans on discharging her today. The left knee wound vac was removed yesterday. Patient denies lightheadedness or shortness of breath or chest pin or dizziness. Physical Exam Constitutional: comfortable Eyes: PERRL, conjunctivae normal, anicteric sclerae EOM intact bilaterally ENMT: external ear and nose normal, oropharynx normal Neck: trachea midline, no thyromegaly Respiratory: normal respiratory effort, lungs clear to auscultation Cardiovascular: RRR, no murmur, no edema Gastrointestinal (Abdomen): normal bowel sounds, soft, nontender, no hepatosplenomegaly Musculoskeletal: Head/Neck/Chest: normocephalic and head atraumatic Neurologic: CN's II-XI intact bilaterally Psychiatric: A+Ox3, euthymic affect Results & Data Vital Signs (Past 12 Hours) Vital Signs Temp Pulse Resp BP Pulse Ox 12/06/18 06:13 36.5 C 90 16 144/83 H 96 12/05/18 23:35 36.8 C 80 16 99/56 L 95
[2018-12-08] MEDS ORDERED: ATORVASTATIN 20 MG TAB PO SCH (09:00)
--- NOTE | 2018-12-18 08:47 | Discharge Summary ---
HISTORY OF PRESENT ILLNESS: This is a 58-year-old female patient of Dr. Azar's complaining of chronic right knee pain, longstanding, now progressively getting worse. The patient was diagnosed with end-stage osteoarthritis. She failed conservative treatment and elected to proceed with a right total knee arthroplasty. PAST MEDICAL HISTORY: Hypertension, hypercholesterolemia, peripheral neuropathy, osteoarthritis, kidney stones, acid reflux, obesity, left arm lymphedema and a history of breast cancer. POSTOPERATIVE COURSE: The patient underwent a right total knee arthroplasty on 12/04/2018. She did well postoperatively. She was followed closely with medical consultation, DVT prophylaxis in the form of Xarelto, physical therapy and pain control. The patient was discharged home on postoperative day #2. PHYSICAL EXAMINATION: Right knee Silverlon dressing was clean, dry and intact. There was no redness or drainage. She had no calf tenderness. Negative Homans sign. Neurologically and neurovascularly, she is intact in her right lower extremity. Toes were mobile, ankle was mobile. DIAGNOSES: Status post right total knee arthroplasty with a history of hypertension, hypercholesterolemia, peripheral neuropathy, kidney stones, acid reflux, obesity, left arm lymphedema with a history of breast cancer. PLAN: The patient was discharged home with outpatient physical therapy on postoperative day #2. She will continue her preadmission medications with the addition of Xarelto for DVT prophylaxis as well as pain medications. She will follow up with Dr. Azar as scheduled as an outpatient.
== END 2018-12-06 09:59 | disposition home or self-care (01) | DRG 470 ==
LOC: ASU 05:01 → 3E 09:27